=== PATIENT | male | born 1960 | race Caucasian/White ===

== ENCOUNTER → 2020-06-08 09:44 | Outpatient (CLI) | payer OTHER, SELFPAY ==
[2020-06-08 13:24] LABS: COVID19 -Nasal RAPID Negative (Negative)
== END ==
PROVIDERS: Family Provider Family Medicine; PCP Family Medicine; Visit Provider Physician Assistant
DX: Z01.812 Encounter for preprocedural laboratory examination (principal)
CPT/HCPCS: 87635

== ENCOUNTER 2020-06-11 10:31 | Day surgery (SDC) | payer OTHER, SELFPAY ==
[2020-06-07 14:45] VITALS: BMI 28.8
[2020-06-11] MEDS: LACTATED RINGERS 1,000 ML 42 ML IV ×2 (11:03→17:23)
[2020-06-11 11:05] VITALS: BP 145/88; PULSE 88; RESP 16; TEMP 36.1; O2SAT 100; BMI 28.3
--- NOTE | 2020-06-11 16:38 | SUR.OPER ---
Supine on padded OR bed, head on pillow, arms secured on padded arm boards at <90 degrees abduction, legs uncrossed, safety belt at thigh, tape over blanket over lower legs.
[2020-06-11] MEDS: CEFAZOLIN 2 GM/100 ML FROZ.PIGGY IV (17:24)
[2020-06-11] MEDS: NEOMYCIN/POLYMYXIN/BACITRA UD OINT 1 EACH TOP (17:24)
[2020-06-11] MEDS: BUPIVACAINE LIPOSOME 266 MG/20 ML VIAL INJ (17:24)
--- NOTE | 2020-06-11 18:56 | P.OP_ITS ---
Operative Date/Time/Diagnoses Date of procedure: 06/11/20 Time of procedure: 18:56 Pre-op diagnosis: Peyronie disease Post-op diagnosis: same Procedure & Clinicians Procedure: 1. Brock penile plication. Same procedure as scheduled: Yes Indications: Peyronie disease Surgeon: Angi León Click Yes if Unassisted: Yes Anesthesia Type: General and Local (1.33% Exparel.) Operative Notes Findings: Overall normal tissue planes. There was approximately a 60 degree dorsal deviation of the penis at approximately the junction of the 3rd and 4th quarter distal length. There was no appreciable right or left lateral deviation with artificial erection. Approximately 1 cm plications were performed opposite and ventral to the dorsal angulation, resulting in penile straightening. Closure Type: primary Specimen(s): none sent Estimated Blood Loss (mL): 10 Blood products transfused: none Tourniquet time (min): 20 Procedure in detail: Patient was positioned supine administered general anesthesia. The lower abdomen, genitalia, and groin were then prepped and draped in sterile fashion. A 16 [place] Shafer catheter was inserted in the lower urinary tract the balloon inflated 10 cc and was crossclamped on the flange for purposes of intraoperative repositioning of phallus. A dorsal penile and circumferential cutaneous block was then performed. A circumferential incision was made in the existing circumcision line the distal portion of the penis. Sharp dissection was taken down the level of the tunica and then blunt dissection was utilized to ?deglove the penile shaft. Now a half-inch Ronnie drain was brought around the base of the exposed penile shaft and was twisted tightly to create tourniquet effect. Using an 18 gauge Angiocath and sterile injectable saline the needle was positioned in the right corporal body and artificial erection created with the findings as described above. Intraoperative marking pen was utilized to make some hash patrick on the ventral aspect. Allis clamps were then used to grasp the ventral corporal body an appropriate distance on the ventral aspect on either side of the corpus spongiosum. The artificial erection was bolstered with additional injection and careful visual examination. The erect penis was now straight. Now small transverse incisions were made through the tunica of the corpus cavernosum just proximal and just distal to the outer edges of the Allis clamps on both the right and left side. 2-0 Prolene was then utilized to place buried interrupted suture from the most proximal edge of the proximal incision to the distal most edge of the distal incision 3 buried sutures were placed per side. The knots were buried in the intervening transfer strip of tunica was buried as well. The tourniquet was now removed. The subcutaneous tissue, including Landon's fascia were then reapproximated using interrupted 3-0 Vicryl. Additional local anesthetic was utilized in the subcutaneous plane and skin edge circumferentially both proximally and distally. Now 4-0 [address] was utilized to place interrupted suture at the 12, 3, 6, and 9:00 a.m. positions thus reapproximating the skin edges. Now a running vertical mattress of 4-0 chromic was placed thus completing reapproximation of the proximal and distal skin edges of the distal shaft incision. The genitalia were then cleaned and dried and a multilevel dressing was then applied as follows: Innermost layer was that of Xeroform gauze and antibiotic ointment over the incision. This was followed by 2 in Kerlix gauze and a non constricting fashion. The 3rd layer consisted of a non constricting wrap of 2 in Coban. Finally, the entire apparatus was secured with a length of 1 in plastic tape, again a non constricting fashion, and you the usual manner. The Shafer balloon was deflated in the catheter was drained of the urine contents. The catheter was then removed. Dry sterile fluffs were then applied to the penis and an athletic supporter was fitted to the patient. The patient was then awakened, transferred to [facility], and transferred to recovery in stable condition. Complications: none Post-operative Condition: stable Disposition: PACU Plan for aftercare: Discharge home
[2020-06-11 19:03] VITALS: BP 135/83; PULSE 80; RESP 13; TEMP 36.3; O2SAT 99
[2020-06-11 19:08] VITALS: BP 131/78; PULSE 84; RESP 14; O2SAT 99
[2020-06-11] MEDS: ONDANSETRON 4 MG/2 ML INJ IV (19:14)
[2020-06-11] MEDS: OXYCODONE/ACETAMINOPHEN 5/325 TABLET 1 TAB PO (19:17)
[2020-06-11 19:18] VITALS: BP 136/80; PULSE 87; RESP 21; O2SAT 98
[2020-06-11 19:22] VITALS: BP 134/77; PULSE 85; RESP 16; O2SAT 98
[2020-06-11 19:27] VITALS: BP 139/82; PULSE 86; RESP 14; TEMP 36.9; O2SAT 98
== END 2020-06-11 19:40 | disposition home or self-care (01) ==
PROVIDERS: Family Provider Family Medicine; PCP Family Medicine; Referring Provider Specialist; Visit Provider Specialist
PROC: (CPT 54360; principal; 2020-06-11 13:30)
DX: N48.6 Induration penis plastica (principal); K21.9 Gastro-esophageal reflux disease without esophagitis; G43.909 Migraine, unspecified, not intractable, without status migrainosus
CPT/HCPCS: 54360; C9290; J0690; J1100; J2405; J2704; J3010